=== PATIENT | female | born 1945 | race Two or more races ===

== ENCOUNTER 2016-06-12 04:45 | Emergency (ER) | payer OTHER ==
[~2016-06-12] VITALS: Ht 154.9 cm; Wt 77.1 kg
[~2016-06-12 04:45] MED LIST: CLARITIN
--- NOTE | 2016-06-12 04:55 | NUR ---
Dr. Conley evaluating patient at triage.
[2016-06-12 05:00] VITALS: BP 171/95
[2016-06-12] MEDS ORDERED: IPRATROPIUM 0.02% 0.5 MG/2.5 ML NEBU INH ONE (05:05)
[2016-06-12] MEDS ORDERED: ALBUTEROL 0.083% 2.5 MG/3 ML NEBU INH ONE (05:05)
--- NOTE | 2016-06-12 05:06 | NUR ---
PT TAKEN TO BED 4
--- NOTE | 2016-06-12 05:12 | NUR ---
RT AT BEDSIDE FOR TREATMENT
--- NOTE | 2016-06-12 05:13 | NUR ---
PT IS A 70Y F BIB SELF TO ED WITH C/O NON PRODUCTIVE COUGH X 5 DAYS WITH DIFFICULT BREATHING PT STATES CHEST AND LOWER BACK PAIN 9/10. PT STATES NO MED HX. DENIES N/V/D; SKIN IS PINK/WARM/DRY; AAOX4 WITH EVEN AND STEADY GAIT; LUNGS CLEAR BL; HR EVEN AND REGULAR; PT DENIES ANY FEVER AT THIS TIME; PATIENT STATES PAIN OF 9/10 AT THIS TIME; VSS; PATIENT POSITIONED FOR COMFORT; HOB ELEVATED; BEDRAILS UP X2; BED DOWN. ER MD MADE AWARE OF PT STATUS.
--- NOTE | 2016-06-12 05:27 | NUR ---
X-Ray at bedside.
--- NOTE | 2016-06-12 05:56 | NUR ---
Patient discharged with v/s stable. Written and verbal after care instructions given and explained. Patient alert, oriented and verbalized understanding of instructions. Ambulatory with steady gait. All questions addressed prior to discharge. ID band removed. Patient advised to follow up with PMD. Rx of BACTRIM, AZITHROMYCIN, ALBUTEROL AND ROBITUSSIN given. Patient educated on indication of medication including possible reaction and side effects. Opportunity to ask questions provided and answered.
[2016-06-12 05:57] VITALS: BP 148/82
== END 2016-06-12 05:56 | disposition home or self-care (01) ==
LOC: MED 04:45
DX: J20.9 Acute bronchitis, unspecified (principal); N39.0 Urinary tract infection, site not specified; J44.9 Chronic obstructive pulmonary disease, unspecified; E11.9 Type 2 diabetes mellitus without complications
CPT/HCPCS: 71010; 81002; 94640; 99283; J7613; J7644; Q0092

== ENCOUNTER 2017-09-04 07:12 | Observation (INO) | payer OTHER ==
[~2017-09-04] VITALS: Ht 152.4 cm; Wt 76.7 kg
[2017-09-04 07:26] VITALS: BP 187/106
[2017-09-04] MEDS ORDERED: methylPREDNISolone SS 125 MG/2 ML VIAL IVP ONE (07:55)
[2017-09-04] MEDS ORDERED: cefTRIAXone 1,000 MG in DEXT 5% MINI-BAG PLUS 50 ML IV ONE (07:55)
[2017-09-04] MEDS ORDERED: ALBUTEROL 0.083% 2.5 MG/3 ML NEBU INH ONE (07:55)
[2017-09-04] MEDS ORDERED: IPRATROPIUM 0.02% 0.5 MG/2.5 ML NEBU INH ONE (07:55)
[2017-09-04] MEDS ORDERED: AZITHROMYCIN 500 MG in DEXTROSE 5% 250 ML IV ONE (07:55)
[2017-09-04] MEDS ORDERED: cefTRIAXone 1,000 MG VIAL ONE (08:08)
[2017-09-04] MEDS ORDERED: AZITHROMYCIN 500 MG INJ VIAL IV ONE (08:08)
[2017-09-04 08:35] LABS: APPEARANCE,URINE CLEAR (CLEAR); BILIRUBIN,URINE NEGATIVE (NEGATIVE); BLOOD, URINE NEGATIVE (NEGATIVE); COLOR,URINE YELLOW (YELLOW); LEUKOCYTE ESTERASE ,URINE NEGATIVE (NEGATIVE); NITRITE, URINE NEGATIVE (NEGATIVE); UGLUCOSE NEGATIVE (NEGATIVE)
[2017-09-04 08:37] LABS: BASOPHILS # (AUTO) 0.1 K/uL (0.00-0.22); BASOPHILS % (AUTO) 0.6 % (0.0-2.0); EOSINOPHILS # (AUTO) 0.4 K/uL (0-0.4); EOSINOPHILS % (AUTO) 2.7 % (0.0-4.0); HEMATOCRIT 45.3 % (36-48); HEMOGLOBIN 15.1 g/dL (12.0-16.0); LYMPHOCYTES # (AUTO) 1.1 K/uL (2.5-16.5); LYMPHOCYTES % (AUTO) 7.2 % (20.5-51.1); MEAN CORPUSCULAR HEMOGLOBIN 29 pg (27-31); MEAN CORPUSCULAR HGB CONC 33 g/dL (33-37); MEAN CORPUSCULAR VOLUME 86.1 fL (80-94); MONOCYTES # (AUTO) 0.5 K/uL (0.8-1.0); MONOCYTES % (AUTO) 3.6 % (1.7-9.3); NEUTROPHILS # (AUTO) 12.6 K/uL (1.8-7.7); NEUTROPHILS % (AUTO) 85.9 % (42.2-75.2); PLATELET COUNT (AUTO) 368 K/uL (140-450); RED BLOOD CELL COUNT(AUTO) 5.26 MIL/uL (4.20-5.40); WHITE BLOOD COUNT (AUTO) 14.7 K/uL (4.8-10.8)
[2017-09-04 08:51] LABS: ALBUMIN 4.2 g/dL (3.4-5.0); ANION GAP 15.3 (8-16); ASPARTATE AMINOTRANSFERASE 26 U/L (15-37); CARBON DIOXIDE 24.4 mmol/L (21-32); CHLORIDE 102 mmol/L (98-107); CREATININE 0.7 mg/dL (0.6-1.3); GLUCOSE 124 mg/dL (74-106); POTASSIUM 3.7 mmol/L (3.5-5.1); SODIUM SERUM 138 mmol/L (136-145); TOTAL BILIRUBIN 0.8 mg/dL (0.0-1.0); UREA NITROGEN, BLOOD 7 mg/dL (7-18)
[2017-09-04 08:52] LABS: PROTHROMBIN TIME 10.3 secs (10.8-13.4)
[2017-09-04] MEDS ORDERED: LORazepam 2 MG/ML VIAL IVP PRN (10:20)
[2017-09-04] MEDS ORDERED: ALBUTEROL SULFATE/IPRATROPIU 3 ML SOL INH PRN (10:20)
[2017-09-04] MEDS ORDERED: ONDANSETRON 4 MG/2 ML VIAL IVP PRN (10:20)
[2017-09-04] MEDS ORDERED: HYDROcodone/APAP 5/325 MG 1 TAB TAB PO PRN (10:20)
[2017-09-04] MEDS ORDERED: ACETAMINOPHEN 325 MG TAB PO PRN (10:20)
[2017-09-04 11:00] VITALS: BP 125/65
[2017-09-04] MEDS ORDERED: LEVOFLOXACIN 750 MG/D5W PREMIX 150 ML IV SCH (13:00)
[2017-09-04] MEDS: NACL 0.9% 1,000 ML IV SCH ×2 (13:01→22:46)
[2017-09-04 16:00] VITALS: BP 129/70
[2017-09-04 16:54] LABS: CREATINE KINASE MB 1.7 ng/mL (0-3.6)
[2017-09-04] MEDS ORDERED: DOCUSATE SODIUM 100 MG GELCAP PO PRN (18:40)
[2017-09-04 20:00] VITALS: BP 126/68
[2017-09-04] MEDS: methylPREDNISolone SS 125 MG/2 ML VIAL IVP SCH (20:41)
[2017-09-05] VITALS: BP 118/69
[2017-09-05] MEDS: NACL 0.9% 1,000 ML IV SCH (03:44)
[2017-09-05 04:00] VITALS: BP 116/68
[2017-09-05] MEDS: methylPREDNISolone SS 125 MG/2 ML VIAL IVP SCH ×2 (05:35→12:31)
[2017-09-05 06:24] LABS: HEMOGLOBIN 13.6 g/dL (12.0-16.0); MEAN CORPUSCULAR HEMOGLOBIN 30 pg (27-31); MEAN CORPUSCULAR HGB CONC 34 g/dL (33-37); MEAN CORPUSCULAR VOLUME 86.4 fL (80-94); PLATELET COUNT (AUTO) 373 K/uL (140-450); RED BLOOD CELL COUNT(AUTO) 4.63 MIL/uL (4.20-5.40); RED CELL DISTRIBUTION WIDTH 13.5 % (11.6-13.7); WHITE BLOOD COUNT (AUTO) 18.1 K/uL (4.8-10.8)
[2017-09-05 06:43] LABS: ANION GAP 14.1 (8-16); CARBON DIOXIDE 23.2 mmol/L (21-32); CHLORIDE 109 mmol/L (98-107); CREATININE 0.7 mg/dL (0.6-1.3); GLUCOSE 173 mg/dL (74-106); POTASSIUM 4.3 mmol/L (3.5-5.1); SODIUM SERUM 142 mmol/L (136-145); UREA NITROGEN, BLOOD 12 mg/dL (7-18)
[2017-09-05 07:38] LABS: LYMPHOCYTES % (MANUAL) 9 % (20-46); MONOCYTES % (MANUAL) 2 % (5-12)
[2017-09-05 08:00] VITALS: BP 132/69
[2017-09-05] MEDS ORDERED: ASPIRIN 81 MG TAB.CHEW PO SCH (09:00)
[2017-09-05] MEDS ORDERED: ENOXAPARIN 40 MG/0.4 ML SYR SUBQ SCH (09:00)
[2017-09-05] MEDS ORDERED: LEVO750T2 PO (11:58)
[2017-09-05] MEDS ORDERED: METH4TAB1 PO (11:59)
[2017-09-05 12:00] VITALS: BP 130/72
[2017-09-05 13:18] LABS: CREATINE KINASE MB 2.7 ng/mL (0-3.6)
[2017-09-05] MEDS ORDERED: PNEUMOCOCCAL VACCINE 23 MCG/0.5 ML VIAL IMVAC PRN (13:57)
== END 2017-09-05 14:05 | disposition home or self-care (01) ==
LOC: MED 07:12 → INTOOBSV 10:13 → MTU 10:13
PROVIDERS: ADMIT Hospitalist; ATTEND Hospitalist
DX: J20.9 Acute bronchitis, unspecified (principal); J30.2 Other seasonal allergic rhinitis; I10 Essential (primary) hypertension
CPT/HCPCS: 36415; 36600; 71045; 80048; 80053; 81003; 82550; 82553; 82803; 84484; 85025; 85379; 85610; 85730; 87040; 87081; 90471; 90732; 93005; 94640; 94760; 96361; 96365; 96367; 96372; 96375; 96376; 99285; G0378; J0456; J0696; J1650; J1956; J2930; J7030; J7060; J7613; J7620; J7644; Q0092